=== PATIENT | male | born 1935 | race Caucasian/White ===

== ENCOUNTER 2018-02-12 08:55 | Outpatient (CLI) | payer MEDICARE, BC | END 2018-02-12 08:56 | disposition home or self-care (01) | LOC: BICULT 08:55 | PROVIDERS: ATTEND Family Medicine | DX: Z13.6 Encounter for screening for cardiovascular disorders (principal) | CPT/HCPCS: 76775 ==

== ENCOUNTER 2019-03-14 19:42 | Inpatient (IN) | payer MEDICARE, BC ==
[2019-03-14 20:23] LABS: Hemoglobin 13.8 g/dL (14.0-18.0); Mean Corpuscular HGB CONC 34.4 g/dL (32.0-36.0); Mean Corpuscular Hemoglobin 32.1 pg (27.0-31.0); Mean Corpuscular Volume 93.3 fL (78.0-98.0); Mean Platelet Volume 5.7 fL (7.4-10.4); Platelet Count 189 thou/uL (130-400); White Blood Cell (WBC) Count 21.8 thou/uL (4.8-10.8)
[2019-03-14] MEDS ORDERED: Clindamycin/D5W 900 mg/50 ml Premix Bag ONE (20:28)
[2019-03-14] MEDS ORDERED: Dexamethasone 10 MG/ML VIAL ONE (20:28)
[2019-03-14 20:31] LABS: ALT (SGPT) 11 U/L (8-55); AST (SGOT) 16 U/L (5-34); Albumin 3.7 g/dL (3.4-4.8); Alkaline Phosphatase 77 U/L (40-150); Anion Gap 11 mmol/L (10-20); BUN (Urea Nitrogen) 19 mg/dL (8.4-25.7); Bilirubin, Total 0.4 mg/dL (0.2-1.2); Calc. Creatinine Clearance 0 mL/min (70-130); Carbon Dioxide 31 mmol/L (23-31); Chloride 99 mmol/L (98-107); Estimated GFR-MDRD 86; Globulin 2.7 g/dL (2.4-3.5); Glucose 103 mg/dL (83-110); Potassium 3.8 mmol/L (3.5-5.1); Protein, Total 6.4 g/dL (5.8-8.1); Sodium 137 mmol/L (136-145)
[2019-03-14 21:07] LABS: Band 2 % (5-11); Lymphocytes 43 % (21-51); MDiff Complete? YES; Monocytes 5 % (0-10); Neutrophil 43 % (42-75); Platelet Morphology Comment Appears Adequate; RBC Morphology Normal; Reactive Lymphocytes 5 % (0-10)
--- NOTE | 2019-03-14 21:24 | CT ---
EXAM: CT neck with contrast HISTORY: Jaw swelling. COMPARISON: None TECHNIQUE: Multiple contiguous axial images were obtained and a CT of the neck with contrast. Sagitta l and coronal reformats were performed. FINDINGS: There is soft tissue swelling of the chin. There is a hypodense region in the area of swelling measur ing 6 mm in size. This may or may not represent a focal fluid collection. No maxillary teeth are seen. There is periapical lucency surrounding the left central mandibular incisor. There is absence o f the left lateral mandibular incisor. No mucosal abnormality is seen in the nasopharynx, oropharynx, hypopharynx, or subglottic regions. No cervical adenopathy is seen. The salivary glands are symmetric thousand focal abnormality. The thyroid is unremarkable. Degenerative changes are seen in the cervical spine. The visualized intracranial structures are unremarkable. The lung apices are unremarkable. IMPRESSION: Soft tissue swelling in the chin with possible fluid collection in the midline.
[2019-03-14 23:27] VITALS: BMI 26.4
[2019-03-14] MEDS ORDERED: Acetaminophen 325 MG TAB PO PRN (23:56)
[2019-03-14] MEDS ORDERED: Ondansetron PF 4 MG/2 ML Vial IVP PRN (23:56)
[2019-03-14] MEDS ORDERED: Sodium Chloride 0.9% 1,000 ML IV SCH (23:56)
[2019-03-14] MEDS ORDERED: Ondansetron ODT 4 MG TAB SL PRN (23:56)
[2019-03-15] MEDS ORDERED: Baclofen 10 MG TAB PO PRN (03:05)
[2019-03-15] MEDS ORDERED: traMADol HCl 50 MG TAB PO PRN (03:05)
--- NOTE | 2019-03-15 05:10 | HP ---
CHIEF COMPLAINT: Facial swelling. HISTORY OF PRESENT ILLNESS: This patient is an 83-year-old male, who presented via the emergency department. The patient reported that he started having some pain associated with tooth in the anterior lower jaw, couple of days ago. Today, he had some increased swelling, so he saw his primary care physician, Dr. Jadiel Blanco. He subsequently referred him for a dental appointment, which he made for the morning of the . The patient returned home, felt poorly, took some tramadol, took a nap and when his daughter came home and saw him, she noted that he had had substantial increased swelling of his face and lower jaw. He subsequently was seen in an urgent care clinic, who immediately referred him to the emergency department. He was seen in [facility] ER where he had a CT scan of the soft tissue of the neck, which indicated soft tissue swelling in the chin and possible fluid collection in the midline. The patient was noted to have significant leukocytosis and was referred for admission after receiving clindamycin, vancomycin, and Decadron. REVIEW OF SYSTEMS: The patient reports he does have some chronic lower extremity edema. He has some chronic pain related to his back and his knees. All other systems reviewed. All pertinent positives and negatives noted in the history of present illness. Also of note, the patient specifically denied having any fevers or chills. 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 PAST SURGICAL HISTORY: Appendectomy, laminectomy, C-spine fusion. FAMILY HISTORY: Father had coronary disease. Mother at 93. He has a brother, who at 75 of an auto accident. SOCIAL HISTORY: The patient smokes cigars. Denies alcohol. He is a and he is full code. His daughter would be his surrogate decision maker should that become necessary. ALLERGIES: NONE. HOME MEDICATIONS: 1. Metoprolol 100 mg daily. 2. Aldactone 25 mg daily. 3. Amitriptyline 25 mg daily. 4. Amlodipine 5 mg daily. 5. Baclofen 10 mg t.i.d. p.r.n. 6. Atorvastatin 20 mg daily. 7. Aspirin 325 one p.o. daily. 8. Glucosamine chondroitin complex one b.i.d. 9. Celebrex 200 b.i.d. 10. Neurontin 600 q.i.d. 11. Nexium 40 mg daily. 12. Colace 100 mg daily. 13. Ramipril Cady 10 mg daily. 14. Loratadine 10 mg daily. 15. Tramadol 50 mg t.i.d. 16. Tamsulosin 0.4 mg b.i.d. PHYSICAL EXAMINATION: VITAL SIGNS: Temperature was 99.2, pulse 84, BP 155/88, and O2 saturation 92% on 2 L. GENERAL APPEARANCE: Age-appropriate male. He is in no distress. He is awake, alert, oriented, pleasant, and cooperative. HEENT: PERRL. No pharyngeal lesions. He does have an area of grayish discoloration and ulceration in the anterior gingival area below the incisors with slight halo of erythema, surprisingly nontender. No drainage. He has some fairly diffuse edema of the chin and lower cheek areas without significant erythema. NECK: Supple and symmetric with no lymphadenopathy, JVD, or carotid bruits. HEART: Regular rate and rhythm without murmurs, gallops, or rubs. LUNGS: Clear to auscultation bilaterally with good chest wall expansion and air exchange. ABDOMEN: Soft, nontender, and nondistended. Positive bowel sounds. No masses. No organomegaly. EXTREMITIES: The patient has 1 to 2+ pitting edema in both lower extremities to above the ankles. LABORATORY DATA: White count 21.8, hemoglobin 13.8, platelets 189, only 2% bands. Chemistries normal. CT soft tissue of neck is noted above. IMPRESSION AND PLAN: 1. Possible abscess in the chin area. The patient had significant edema of the chin and lower cheek areas and there was concern about the facial edema potentially causing some compromise of his airway. Therefore, he was given the steroids along with the antibiotics. He reports that he has already had some significant improvement in the edema and actually feels pretty well at the moment. We will continue with the antibiotics depending on how he responds and how the swelling improves. He may be able to continue as an outpatient to have follow up with the dentist. However, given the fluid collection in the chin area representing a potential abscess in association with what appears to be a dental abscess, we will go ahead and consult ENT while he is here. In the meantime, continue with the vancomycin and clindamycin. 2. Hypertension. Continue with his usual home medications. 3. Gastroesophageal reflux disease. Continue with PPI. 4. BPH. Resume his tamsulosin. 5. Hyperlipidemia. Continue home medications. Job ID: [id number]
[2019-03-15] MEDS: Clindamycin/D5W 900 MG in Premix Bag 1 BAG IVPB SCH ×3 (05:45→23:00)
[2019-03-15] MEDS ORDERED: Temazepam 15 MG CAP PO PRN (08:09)
[2019-03-15] MEDS ORDERED: Senokot S 8.6-50 MG TAB PO PRN (08:09)
[2019-03-15] MEDS ORDERED: Cepastat Lozenges 1 LOZ PO PRN (08:09)
[2019-03-15] MEDS ORDERED: Diabetic Tussin 200 MG/10 ML UDCUP PO PRN (08:09)
[2019-03-15] MEDS ORDERED: Bisacodyl 10 MG SUPP PR PRN (08:09)
[2019-03-15] MEDS ORDERED: Artificial Tears 18 DROP/0.9 ML EA EYE PRN (08:09)
[2019-03-15] MEDS ORDERED: Loperamide HCl 2 MG CAP PO PRN (08:09)
[2019-03-15] MEDS ORDERED: hydrALAZINE 20 MG/ML VIAL SLOW IVP PRN (08:09)
[2019-03-15] MEDS ORDERED: Sodium Chloride 0.65% Nasal 44 ML BOT EA NARE PRN (08:09)
[2019-03-15] MEDS ORDERED: Loratadine 10 MG TAB PO PRN (08:09)
[2019-03-15] MEDS ORDERED: Ketorolac Tromethamine 30 MG/ML VIAL IVP PRN (08:10)
[2019-03-15] MEDS ORDERED: Aspirin 325 mg Enteric Coated Tablet PO SCH (09:00)
[2019-03-15] MEDS ORDERED: Atorvastatin Calcium 20 MG TAB PO SCH (09:00)
[2019-03-15] MEDS ORDERED: Docusate 100 MG CAP PO SCH (09:00)
[2019-03-15] MEDS ORDERED: Amitriptyline HCl 25 MG TAB PO SCH (09:00)
[2019-03-15] MEDS ORDERED: Ramipril 5 MG CAP PO SCH (09:00)
[2019-03-15] MEDS ORDERED: Spironolactone 25 MG TAB PO SCH (09:00)
[2019-03-15] MEDS ORDERED: Saccharomyces boulardii 250 MG CAP PO SCH (09:00)
[2019-03-15] MEDS ORDERED: Amlodipine 5 MG TAB PO SCH (09:00)
[2019-03-15] MEDS: CeleCOXIB 100 MG CAP PO SCH ×2 (10:25→20:24)
[2019-03-15] MEDS: Tamsulosin HCl 0.4 MG CAP PO SCH ×2 (10:25→20:24)
[2019-03-15] MEDS: Gabapentin 300 MG CAP PO SCH ×4 (10:29→20:23)
--- NOTE | 2019-03-15 11:36 | PDOC.PN ---
- Subjective Encounter Start Date: 03/15/19 Encounter Start Time: 07:10 -: old records requested/rev Patient seen and examined. No new complaints. No overnight events - Objective Resuscitation Status - Order Detail: 03/15/19 00:38 Resuscitation Status Routine Resuscitation Status: FULL: Full Resuscitation MAR Reviewed: Yes Vital Signs & Weight: Vital Signs (12 hours) Temp BP Pulse Ox 03/15/19 10:29 98.4 F 03/15/19 10:26 154/88 H 03/15/19 07:00 98.0 F 03/15/19 03:48 98.1 F 03/15/19 00:00 99 03/14/19 23:29 99.2 F Weight Weight 192 lb 14.4 oz Most Recent Monitor Data Heart Rate from ECG 75 NIBP 150/84 NIBP BP-Mean 106 Respiration from ECG 17 SpO2 95 I&O: 03/14/19 03/15/19 03/16/19 06:59 06:59 06:59 Intake Total 267 Balance 267 Result Diagrams: 03/14/19 20:15 03/14/19 20:15 EKG Reviewed by me: Yes (nsr) Phys Exam - Physical Examination Constitutional: NAD HEENT: PERRLA, moist MMs, sclera anicteric Neck: no JVD, supple Respiratory: no wheezing, no rales, no rhonchi Cardiovascular: RRR, no significant murmur, no rub Gastrointestinal: soft, non-tender, no distention, positive bowel sounds Musculoskeletal: no edema, pulses present Neurological: non-focal, normal sensation Lymphatic: no nodes Psychiatric: normal affect, A&O x 3 Skin: no rash, normal turgor Dx/Plan (1) Dental abscess Code(s): K04.7 - PERIAPICAL ABSCESS WITHOUT SINUS Status: Acute (2) Facial swelling Code(s): R22.0 - LOCALIZED SWELLING, MASS AND LUMP, HEAD Status: Acute (3) BPH (benign prostatic hyperplasia) Code(s): N40.0 - BENIGN PROSTATIC HYPERPLASIA WITHOUT LOWER URINRY TRACT SYMP Status: Chronic (4) CAD (coronary artery disease) Code(s): I25.10 - ATHSCL HEART DISEASE OF [place] CORONARY ARTERY W/O ANG PCTRS Status: Chronic (5) DJD (degenerative joint disease) Code(s): M19.90 - UNSPECIFIED OSTEOARTHRITIS, UNSPECIFIED SITE Status: Chronic (6) Dyslipidemia Code(s): E78.5 - HYPERLIPIDEMIA, UNSPECIFIED Status: Chronic (7) GERD (gastroesophageal reflux disease) Code(s): K21.9 - GASTRO-ESOPHAGEAL REFLUX DISEASE WITHOUT ESOPHAGITIS Status: Chronic (8) Hypertension Code(s): I10 - ESSENTIAL (PRIMARY) HYPERTENSION Status: Chronic - Plan cont current plan of care, continue antibiotics * continue clindamycin * medication reviewed as below * symptomatic treatment. * ok to transfer to medical * ENT consulted but oral surgery may need * discussed with family Review of Systems - Review of Systems ENT: negative: Ear Pain, Ear Discharge, Nose Pain, Nose Discharge, Nose Congestion, Mouth Pain, Mouth Swelling, Throat Pain, Throat Swelling, Other Respiratory: negative: Cough, Dry, Shortness of Breath, Hemoptysis, SOB with Excertion, Pleuritic Pain, Sputum, Wheezing Cardiovascular: negative: chest pain, palpitations, orthopnea, paroxysmal nocturnal dyspnea, edema, light headedness, other Gastrointestinal: negative: Nausea, Vomiting, Abdominal Pain, Diarrhea, Constipation, Melena, Hematochezia, Other Genitourinary: negative: Dysuria, Frequency, Incontinence, Hematuria, Retention , Other Musculoskeletal: negative: Neck Pain, Shoulder Pain, Arm Pain, Back Pain, Hand Pain, Leg Pain, Foot Pain, Other - Medications/Allergies Allergies/Adverse Reactions: Allergies Allergy/AdvReac Type Severity Reaction Status Date / Time No Known Allergies Allergy Verified 02/06/15 11:45 Medications: Current Medications Amitriptyline HCl (Elavil) 25 mg PO DAILY [facility] Last Admin: 03/15/19 10:29 Dose: 25 mg Amlodipine Besylate (Norvasc) 5 mg PO DAILY [facility] Last Admin: 03/15/19 10:29 Dose: 5 mg Artificial Tears (Tears Naturale) 2 drop EA EYE PRN PRN PRN Reason: Dry Eyes Aspirin (Ecotrin) 325 mg PO DAILY [facility] Last Admin: 03/15/19 10:29 Dose: 325 mg Atorvastatin Calcium (Lipitor) 20 mg PO DAILY [facility] Last Admin: 03/15/19 10:30 Dose: 20 mg Baclofen (Lioresal) 10 mg PO TIDPRN PRN PRN Reason: Pain Bisacodyl (Dulcolax) 10 mg CA DAILYPRN PRN PRN Reason: Constipation Celecoxib (Celebrex) 200 mg PO BID [facility] Last Admin: 03/15/19 10:25 Dose: 200 mg Docusate Sodium (Colace) 100 mg PO DAILY [facility] Last Admin: 03/15/19 10:29 Dose: 100 mg Gabapentin (Neurontin) 600 mg PO QID [facility] Last Admin: 03/15/19 10:29 Dose: 600 mg Guaifenesin (Robitussin Sf) 200 mg PO Q4H PRN PRN Reason: Cough Hydralazine HCl (Apresoline) 10 mg SLOW IVP Q4H PRN PRN Reason: SBP > 180 and HR < 70 Clindamycin Phosphate/Dextrose (900 mg/ Device) 50 mls @ 100 mls/hr IVPB Q8HR [facility] Last Admin: 03/15/19 05:45 Dose: 50 mls Ketorolac Tromethamine (Toradol) 15 mg IVP Q6H PRN PRN Reason: Pain Stop: 03/20/19 08:11 Loperamide HCl (Imodium) 2 mg PO PRN PRN PRN Reason: Diarrhea/Loose Stools Loratadine (Claritin) 10 mg PO DAILYPRN PRN PRN Reason: Sinus Symptoms Metoprolol Succinate (Toprol Xl) 100 mg PO DAILY [facility] Last Admin: 03/15/19 10:30 Dose: 100 mg Pantoprazole Sodium (Protonix) 40 mg PO DAILY [facility] Last Admin: 03/15/19 10:30 Dose: 40 mg Ramipril (Altace) 10 mg PO DAILY [facility] Last Admin: 03/15/19 10:26 Dose: 10 mg Saccharomyces Boulardii (Florastor) 250 mg PO DAILY [facility] Last Admin: 03/15/19 10:26 Dose: 250 mg Senna/Docusate Sodium (Senokot S) 2 tab PO BID PRN PRN Reason: Constipation Sodium Chloride (Flush - Normal Saline) 10 ml IVF Q12HR [facility] Last Admin: 03/15/19 10:30 Dose: Not Given Sodium Chloride (Flush - Normal Saline) 10 ml IVF PRN PRN PRN Reason: Saline Flush Sodium Chloride (Virgin Nasal [place] 0.65%) 0 ml EA NARE QIDPRN PRN PRN Reason: Nasal Congestion Spironolactone (Aldactone) 25 mg PO DAILY [facility] Last Admin: 03/15/19 10:25 Dose: 25 mg Tamsulosin HCl (Flomax) 0.4 mg PO BID [facility] Last Admin: 03/15/19 10:25 Dose: 0.4 mg Temazepam (Restoril) 15 mg PO HSPRN PRN PRN Reason: Insomnia Throat Lozenges (Cepastat Lozenges) 1 rock PO Q2H PRN PRN Reason: Sore Throat Tramadol HCl (Ultram) 50 mg PO TID PRN PRN Reason: Pain
[2019-03-15] MEDS ORDERED: Furosemide 20 MG/2 ML VIAL SLOW IVP SCH (13:30)
--- NOTE | 2019-03-15 18:25 | CON ---
DATE OF CONSULTATION: 03/15/2019 SERVICE: Pulmonary Medicine. REASON FOR CONSULTATION: [facility] patient. HISTORY OF PRESENT ILLNESS: The patient is an 83-year-old white male with past medical history significant for poor dentition. He was in his usual state of health until about 3 days prior to admission when he started having increasing swelling and redness in his chin. He started having worsening in the swelling. He presented to the emergency department. Ultimately, they had fear of an airway issue. As such, he was started on appropriate antibiotics and observed in the ICU. He was given some steroids. With these interventions, the patient had significant improvement in symptoms. His swelling has now gone down dramatically. He denies any current fevers, chills, cough, nausea, or vomiting. He was having shaking chills and sweats for about a day and a half before he came to the hospital. PAST MEDICAL HISTORY: 1. Hypertension. 2. Dyslipidemia. 3. Coronary artery disease. 4. Osteoarthritis with degenerative joint disease. 5. BPH. 6. Gastroesophageal reflux disease. 7. Macular degeneration. PAST SURGICAL HISTORY: 1. Appendectomy. 2. Laminectomy. 3. C-spine fusion. FAMILY HISTORY: Noncontributory. SOCIAL HISTORY: The patient smokes cigars. He denies any alcohol or illicit drug use. He has no exposure to chemicals, dust, asbestos, or tuberculosis otherwise. ALLERGIES: NO KNOWN DRUG ALLERGIES. MEDICATIONS: List of his inpatient medications was reviewed. No specific updates were made at this time. REVIEW OF SYSTEMS: General, head, ears, eyes, nose, throat, cardiovascular, respiratory, GI, , musculoskeletal, neurologic, and skin is negative except as mentioned in the HPI. PHYSICAL EXAMINATION: VITAL SIGNS: Afebrile, pulse 75, blood pressure 150/84, respirations 17, and saturation 95% on room air. GENERAL: The patient is awake and alert, in no apparent distress. HEENT: Normocephalic and atraumatic. Sclerae white. Conjunctivae pink. There is overlying erythema and swelling over the anterior mandible. I applied direct pressure to this lesion, and a purulent drainage came from the jaw under the anterior mandibular teeth. LUNGS: Very good air entry with no prolonged expiratory phase or wheezing present. HEART: Normal rate and regular. ABDOMEN: Soft, nontender, and nondistended. Bowel sounds are positive. MUSCULOSKELETAL: No cyanosis or clubbing. No pitting in the bilateral lower extremities. NEUROLOGIC: Grossly nonfocal. LABORATORY DATA: WBC 21.8, hemoglobin 13.8, and platelets 189,000, neutrophils are 43% on top of 2% bands. Basic metabolic profile and liver function studies as well as lactate are unremarkable. Blood cultures x2 remain unremarkable. IMAGING STUDIES: CT of the soft tissue of the neck demonstrates abscess formation and subcutaneous soft tissue swelling of the anterior mandibular jaw. ASSESSMENT: 1. Cellulitis. 2. Abscess of the anterior mandibular soft tissue. 3. Poor dentition. 4. Sepsis without end-organ damage. DISCUSSION AND PLAN: The patient is protecting his airway just fine. We are going to him transition out of the ICU to the surgical unit. I am going to cancel the ENT consult and put in an OMFS consultation. I will either leave him n.p.o. or feed him based on what their timeline looks like. When the patient lands on the floor, he will have no further requirements for inpatient pulmonary critical care opinion , and I will sign off. I agree with our current antibiotic selection. Repeat laboratories will be performed tomorrow morning. 70 minutes have been devoted to this patient in various activities. I personally reviewed all imaging studies and laboratory data noted within this document. For fifty percent of this time, I was interacting with the patient at the bedside or coordinating care with the care team. For the remainder of the time I was immediately available to the patient in the hospital unit. Job ID: [id number] [facility]
--- NOTE | 2019-03-15 22:45 | CON ---
DATE OF CONSULTATION: HISTORY OF PRESENT ILLNESS: Mr. Kwan was admitted to [place] through the emergency room. He had seen his primary care doctor yesterday and was having some facial swelling and pain. The primary care determined that he probably had a dental abscess which he had referred him to dentistry. The pain got worse and he went to an urgent care and they immediately recommended to go the emergency room. In the emergency room, his white count was found to be elevated. CT scan was performed and it appeared that this could be a dental origin. However, upon CT scan, they also found one small 5.7 mm mass within the deep area of the chin. Therefore, ENT was called in for assessment. He was placed on IV antibiotics and admitted to [facility]. OBJECTIVE: The patient is well developed, well nourished, in no acute distress. His vital signs are stable at this time. Facial swelling has reduced significantly per the patient. Today, both sides look very symmetric. Left side is where most of the swelling was and this was not observed to be significantly swollen upon examination today. Examination of the chin area where the small 5.7 mm mass was seen, there is no overlying skin redness. There is nothing palpable at this time. There is no tenderness upon palpation to the area that was indicated on the CT scan. This is most likely secondary to collection of fluid to the tooth infection. ASSESSMENT: 1. Abscess of chin, possible. 2. Dental abscess. PLAN: 1. At this time, there is nothing to do surgically from an ENT standpoint for the chin abscess given its relative size and the fact that the patient is improving on IV antibiotics. 2. However, we do recommend an Oral Surgery consult to address the possible tooth abscess as this is most likely the primary source of the infection. Job ID: [id number]
[2019-03-16] MEDS: Clindamycin/D5W 900 MG in Premix Bag 1 BAG IVPB SCH (05:14)
[2019-03-16 06:27] LABS: Hemoglobin 12.4 g/dL (14.0-18.0); Mean Corpuscular HGB CONC 33.2 g/dL (32.0-36.0); Mean Corpuscular Hemoglobin 32.4 pg (27.0-31.0); Mean Corpuscular Volume 97.5 fL (78.0-98.0); Mean Platelet Volume 6.5 fL (7.4-10.4); Platelet Count 185 thou/uL (130-400); RBC Distribution Width 13.6 % (11.5-14.5); Red Blood Cell (RBC) Count 3.84 mill/uL (4.70-6.10); White Blood Cell (WBC) Count 16.2 thou/uL (4.8-10.8)
[2019-03-16 06:28] LABS: Anion Gap 9 mmol/L (10-20); BUN (Urea Nitrogen) 19 mg/dL (8.4-25.7); Calc. Creatinine Clearance 79 mL/min (70-130); Calcium 8.8 mg/dL (7.8-10.44); Carbon Dioxide 33 mmol/L (23-31); Chloride 103 mmol/L (98-107); Estimated GFR-MDRD 83; Glucose 92 mg/dL (83-110); Magnesium 2.1 mg/dL (1.6-2.6); Potassium 3.9 mmol/L (3.5-5.1); Sodium 141 mmol/L (136-145)
[2019-03-16 06:29] LABS: Hypochromia SLIGHT = 6-15 cells (100X) (0-5/hpf); Lymphocytes 46 % (21-51); MDiff Complete? YES; Monocytes 5 % (0-10); Neutrophil 49 % (42-75); Platelet Morphology Comment Appears Adequate
[2019-03-16 08:17] VITALS: BP 184/93; TEMP 98.2
[2019-03-16] MEDS ORDERED: Furosemide 20 MG/2 ML VIAL SLOW IVP SCH (09:00)
--- NOTE | 2019-03-16 10:46 | CON ---
DATE OF CONSULTATION: REASON FOR CONSULTATION: Dental abscess, sepsis. CHIEF COMPLAINT: Jaw, tooth pain and swelling. HISTORY OF PRESENT ILLNESS: This is an 83-year-old male with a 4-day history of lower chin area pain and swelling and loose tooth. The patient was admitted on 03/14/2019 from the ER for sepsis due to this condition. He was given IV fluids and antibiotics, and has since responded well as well as having spontaneous drainage from his dental abscess. PAST MEDICAL HISTORY: Diabetes and hypertension. MEDICATIONS: Listed in EMR. PHYSICAL EXAMINATION: The patient has a draining fistula adjacent to a class 2 mobility #24. Swelling is moderate in the mandibular vestibule. No submandibular or submental swelling is noted. The patient's vital signs are all stable. He is afebrile. LABORATORY DATA: White count currently 16. IMAGING STUDIES: CT scan of the face shows a small periapical abscess around tooth #24 and small 4 to 5 mm fluid collection adjacent to this. ASSESSMENT: An 83-year-old male with a dental abscess from tooth #24, has responded appropriately to antibiotics and IV fluids. PLAN: Please discharge the patient to my office for removal of tooth #24 and I and D of abscess. Job ID: [id number]
--- NOTE | 2019-03-16 10:54 | PQF ---
CLINICAL DOCUMENTATION IMPROVEMENT CLARIFICATION FORM: ICD-10 Updated PLEASE DO AN ADDENDUM TO THE PROGRESS NOTE WITH ANY DOCUMENTATION UPDATES OR ADDITIONS AND CARRY THROUGH TO DC SUMMARY. THANK YOU. DATE: 03/16/2019 ATTN: Dr. Myers Please exercise your independent, professional judgment in responding to the clarification form. Clinical indicators are provided on the bottom of this form for your review Please check appropriate box(es): [ x ] Sepsis due to Dental abscess. [ ] Sepsis due to other: [ ] Localized infection without sepsis [ ] Other diagnosis [ ] Unable to determine In addition, please specify: Present on Admission (POA): [ x] Yes [ ] No [ ] Unable to determine For continuity of documentation, please document condition throughout progress notes and discharge summary. Thank You. CLINICAL INDICATORS - SIGNS / SYMPTOMS / LABS ER Record 03/14: BP 153/88, Pulse 90, Resp. 17, O2 sat 93 on RA .Temp: 99.6 DX: dental abscess Additional: jaw swelling, Sepsis 03/15 ([place]) WBC 21.8 Cellulitis Abscess of the anterior mandibular soft tissue Sepsis without end-organ damage RISKS: PN 03/15: 83 yo. Dental Abscess. Chronic CAD. HTN. 03/15 ([facility]) medical hx significant for poor dentition. TREATMENT: Order 03/15-03/16: Clindamycin 900 mg IV q 8 hr. Thank you, Ashley (This form is maintained as a part of the permanent medical record) 2014 [employer]. All Rights Reserved Ashley Valencia, RN, BSN [email or web address] Office: [phone] [facility]
--- NOTE | 2019-03-16 12:52 | DIS ---
DATE OF ADMISSION: 03/14/2019 DATE OF DISCHARGE: 03/16/2019 PRIMARY CARE PHYSICIAN: Jadiel Blanco DO. DISCHARGE DISPOSITION: Home. PRIMARY DISCHARGE DIAGNOSES: 1. Dental abscess with jaw swelling. 2. Sepsis due to problem #1. SECONDARY DISCHARGE DIAGNOSES: Benign enlargement of prostate, coronary artery disease, degenerative joint disease, dyslipidemia, gastroesophageal reflux disease, hypertension. PRIMARY PROCEDURE/OPERATION: None. RADIOLOGICAL INVESTIGATION: Soft tissue neck CT scan. SIGNIFICANT LABORATORY DATA: WBC 16.2, hemoglobin 12.4, platelet 185. Sodium 141, creatinine 0.88. LFTs normal. DISCHARGE MEDICATIONS: 1. Clindamycin 300 mg q.6 hourly for 10 days. 2. Florastor 250 mg p.o. daily. 3. Tramadol 50 mg t.i.d. p.r.n. 4. Flomax 0.4 mg p.o. daily. 5. Aldactone 25 mg daily. 6. Ramipril 10 mg daily. 7. Metoprolol-XL 100 mg daily. 8. Claritin 10 mg daily p.r.n. 9. Glucosamine/chondroitin sulfate one tablet p.o. b.i.d. p.r.n. 10. Neurontin 600 mg q.i.d. 11. Nexium 40 mg daily. 12. Colace 100 mg p.o. b.i.d. 13. Celebrex 200 mg p.o. b.i.d. p.r.n. 14. Baclofen 10 mg t.i.d. p.r.n. 15. Lipitor 20 mg p.o. daily. 16. Amlodipine 10 mg p.o. daily. 17. Aspirin 1 tablet daily. 18. Amitriptyline 25 mg p.o. daily. CONTRAINDICATION: None. CODE STATUS: Full code. INPATIENT MASTER SONAR TECHNICIAN: Dr. Nugent. TEST RESULTS PENDING ON DISCHARGE: None. ALLERGIES: NO KNOWN DRUG ALLERGIES. DISCHARGE PLAN: Posthospital, the patient will follow up with primary care physician as well as James Dumont. HOSPITAL COURSE: An 83-year-old male who was admitted by Dr. Andujar. The patient was having dental abscess and it was causing midline swelling and that is why from the emergency room this patient was admitted to [facility]. As the patient was admitted to [facility], Dr. Cano saw this patient. The patient was initially consulted by ENT for this problem, but after that we needed Oral Surgery consultation. He was having sepsis and his dental abscess treated with clindamycin. While in hospital, oral surgeon recommended that this patient will need a tooth extraction and that they will do after discharge in their office and that is why we discharged this patient to go to their office and he will have tooth extraction done. The patient will continue to have antibiotic therapy as mentioned above and pain medication will be prescribed by oral surgeon. I have seen and examined the patient bedside today. Plan of care discussed with the patient and the family member at bedside. PHYSICAL EXAMINATION: VITAL SIGNS: On discharge, his temperature 98.2, pulse 67, respiratory rate 16, saturations 100% on room air, blood pressure 130/70. Weight 192 pounds. GENERAL: The patient is currently alert, awake, no obvious acute distress. HEENT: Head; normocephalic, atraumatic. LUNGS: Clear to auscultation without any rhonchi or rales. CARDIAC: S1, S2, regular without any murmur. ABDOMEN: Soft and benign. EXTREMITIES: No edema. NEUROLOGIC: Nonfocal examination. Overall, the patient is medically stable for discharge today. Job ID: [id number]
== END 2019-03-16 08:58 | disposition home or self-care (01) | DRG 872 ==
LOC: SCSER 19:42 → IMCU/EMU 22:58 → T4-B 03-15 17:51
PROVIDERS: ADMIT Internal Medicine; ATTEND Internal Medicine
DX: A41.9 Sepsis, unspecified organism (principal); K04.7 Periapical abscess without sinus; I10 Essential (primary) hypertension; K21.9 Gastro-esophageal reflux disease without esophagitis; I25.10 Atherosclerotic heart disease of native coronary artery without angina pectoris; E78.5 Hyperlipidemia, unspecified; N40.0 Benign prostatic hyperplasia without lower urinary tract symptoms; M19.90 Unspecified osteoarthritis, unspecified site; E11.9 Type 2 diabetes mellitus without complications; Z90.49 Acquired absence of other specified parts of digestive tract; Z79.82 Long term (current) use of aspirin; Z79.899 Other long term (current) drug therapy; Z79.84 Long term (current) use of oral hypoglycemic drugs
CPT/HCPCS: 36415; 70491; 80048; 80053; 83605; 83735; 85025; 87040; 96365; 96368; 96375; J1100; J1940; J3370; J3490